=== PATIENT | male | born 1990 | race Two or more races ===

== ENCOUNTER 2017-09-13 00:02 | Emergency (ER) | payer OTHER ==
[~2017-09-13] VITALS: Ht 182.9 cm; Wt 59.0 kg
--- NOTE | 2017-09-13 17:19 | EKG ---
[facility] [address] [facility] [address] [place] [address] Signed Sinus tachycardia Right atrial enlargement Minimal voltage criteria for LVH, may be normal variant Borderline ECG No previous ECGs available Confirmed by SHANNON ADLER MD ([id number]) on 09/13/2017 5:18:56 PM Electronically Signed By: SHANNON ADLER MD 09/13/17 1719 PATIENT NAME: POMPARIVERLolita POMPA Electrocardiogram DATE OF : 89 PHYSICIAN: SHANNON ADLER MD REPORT #: [id number] REPORT IS CONFIDENTIAL AND NOT TO BE RELEASED WITHOUT AUTHORIZATION
== END 2017-09-13 03:40 | disposition home or self-care (01) ==
LOC: ED 00:02
PROC: 0T9B70Z Drainage of Bladder with Drainage Device, Via Natural or Artificial Opening (ICD-10-PCS; principal; 2017-09-13)
DX: F19.10 Other psychoactive substance abuse, uncomplicated (principal); R41.82 Altered mental status, unspecified
CPT/HCPCS: 51701; 70450; 80053; 80176; 81001; 85025; 93005; 93010; 96374; 99284; G0480; J2060; J7030

== ENCOUNTER 2018-07-15 01:09 | Emergency (ER) | payer OTHER ==
[~2018-07-15] VITALS: Ht 182.9 cm; Wt 59.0 kg
== END 2018-07-15 01:52 | disposition home or self-care (01) ==
LOC: ED 01:09
DX: R56.9 Unspecified convulsions (principal)
CPT/HCPCS: 99284

== ENCOUNTER 2018-07-20 20:10 | Emergency (ER) | payer OTHER ==
[~2018-07-20] VITALS: Ht 182.9 cm; Wt 59.0 kg
--- OUTSIDE RECORDS SUMMARY | 2018-07-20 20:16 | XMS ---
PreManage Notification: [place] [employer] T[employer] Events No recent Security Events currently on file CRITERIA MET - [facility] - 2 Visits in 30 Days CARE PROVIDERS LEGACY PATIENT Primary Care Current [facility] PHONE: Unknown [facility] Primary Care Olegario FOURNIER PHONE: Unknown Julio Tolliver MD Current PHONE: Unknown [facility] Current [facility] PHONE: [phone] Sandy has no Care Guidelines for this patient. Wendy VISIT COUNT (12 MO.) 5 [facility] 3 JULIETTE Feldman TOTAL 8 NOTE: Visits indicate total known visits. ED/UCC VISIT TRACKING (12 MO.) 07/20/2018 20:11 [facility] [place] TYPE: Emergency COMPLAINT: - POSS SEIZURE 07/15/2018 01:09 [facility] [place] TYPE: Emergency COMPLAINT: - POSS SEIZURE DIAGNOSES: - Unspecified convulsions 05/26/2018 19:34 [facility] TYPE: Emergency DIAGNOSES: - Viral intestinal infection, unspecified - CHILLS VOMITING 05/18/2018 12:51 [facility] TYPE: Emergency DIAGNOSES: - SHORTNESS OF BREATH - Unspecified asthma with (acute) exacerbation 03/06/2018 11:32 [email or web address] COMPLAINT: - POSS FOOD POISONING 09/13/2017 14:44 [facility] [place] TYPE: Emergency COMPLAINT: - NOT ABLE TO EAT OR TALK DIAGNOSES: - Poisoning by unspecified narcotics, accidental (unintentional), initial encounter - Nicotine dependence, cigarettes, uncomplicated - Other stimulant abuse, uncomplicated - Somnolence 09/13/2017 00:03 [facility] [place] TYPE: Emergency COMPLAINT: - POSS SEIZURE DIAGNOSES: - Altered mental status, unspecified - Other psychoactive substance abuse, uncomplicated - Restlessness and agitation 08/31/2017 08:28 [facility] [place] TYPE: Emergency COMPLAINT: - HIV TEST DIAGNOSES: - Nicotine dependence, unspecified, uncomplicated - High risk homosexual behavior INPATIENT VISIT TRACKING (12 MO.) No inpatient visits to display in this time frame [email or web address]
== END 2018-07-20 23:32 | disposition home or self-care (01) ==
LOC: ED 20:10
DX: R56.9 Unspecified convulsions (principal)
CPT/HCPCS: 80053; 85025; 96360; 96361; 99284-25; G0480; J7030